=== PATIENT | male | born 1955 | race Caucasian/White ===

== ENCOUNTER 2022-12-27 10:27 | Emergency (ER) | payer MEDICARE ==
[~2022-12-27] VITALS: Ht 167.6 cm; Wt 80.0 kg
[2022-12-27 10:32] VITALS: BP 157/100; PULSE 71; RESP 16; TEMP 98.6; O2SAT 99
[2022-12-27] MEDS ORDERED: CEPH-585 PO (11:53)
[2022-12-27] MEDS ORDERED: CLIN300C54 PO (11:53)
[2022-12-27] MEDS ORDERED: PERM60CR19 TOP (11:53)
== END 2022-12-27 12:34 | disposition home or self-care (01) ==
LOC: ER 10:27
DX: S80.862A Insect bite (nonvenomous), left lower leg, initial encounter (principal); S80.861A Insect bite (nonvenomous), right lower leg, initial encounter; W57.XXXA Bitten or stung by nonvenomous insect and other nonvenomous arthropods, initial encounter; Y93.89 Activity, other specified; Y92.89 Other specified places as the place of occurrence of the external cause; Y99.8 Other external cause status
CPT/HCPCS: 99283

== ENCOUNTER 2022-12-28 12:24 | Emergency (ER) | payer MEDICARE, MEDICAID ==
[~2022-12-28] VITALS: Ht 167.6 cm; Wt 90.0 kg
[~2022-12-28 12:24] MED LIST: CEPH-585 PO; CLIN300C54 PO; PERM60CR19 TOP
[2022-12-28 12:32] VITALS: TEMP 97
[2022-12-28 14:32] VITALS: BP 126/78; PULSE 62; RESP 17; O2SAT 98
== END 2022-12-28 14:35 | disposition home or self-care (01) ==
LOC: ER 12:24
DX: L03.116 Cellulitis of left lower limb (principal); L03.115 Cellulitis of right lower limb
CPT/HCPCS: 99281

== ENCOUNTER 2023-01-10 10:50 | Emergency (ER) | payer MEDICARE, MEDICAID ==
[~2023-01-10] VITALS: Ht 167.6 cm; Wt 81.8 kg
[~2023-01-10 10:50] MED LIST changes: -CLIN300C54 PO
[2023-01-10 10:58] VITALS: BP 142/111; PULSE 71; RESP 18; TEMP 98.9; O2SAT 99
[2023-01-10 12:19] LABS: URINE AMPHETAMINE SCREEN NEGATIVE (Neg); URINE BARBITUATE SCREEN NEGATIVE (Neg); URINE BENZODIAZEPINES SCREEN NEGATIVE (Neg); URINE CANNABINOID SCREEN NEGATIVE (Neg); URINE COCAINE SCREEN NEGATIVE (Neg); URINE OPIATE SCREEN NEGATIVE (Neg); URINE PHENCYCLIDINE SCREEN NEGATIVE (Neg)
[2023-01-10 12:25] LABS: BASOPHILS % (AUTO) 0.3 % (0-1); EOSINOPHILS # (AUTO) 0.2 X10'3 (0-0.9); EOSINOPHILS % (AUTO) 4.1 % (0-6); HEMATOCRIT 41.2 % (42.0-52.0); LYMPHOCYTES # (AUTO) 1.3 X10'3 (1.1-4.8); LYMPHOCYTES % (AUTO) 23.3 % (21-51); MEAN CORPUSCULAR HEMOGLOBIN 30.1 PG (27.0-31.0); MEAN CORPUSCULAR HGB CONC 34.1 g/dL (33.0-36.5); MEAN CORPUSCULAR VOLUME 88.2 FL (78-98); MEAN PLATELET VOLUME 8.1 FL (7.4-10.4); MONOCYTES # (AUTO) 0.5 X10'3 (0-0.9); MONOCYTES % (AUTO) 9.2 % (2-12); NEUTROPHILS # (AUTO) 3.6 X10'3 (1.8-7.7); NEUTROPHILS % (AUTO) 63.1 % (42-75); PLATELET COUNT 252 X10'3 (140-440); RED BLOOD COUNT 4.67 X10'6 (4.70-6.10); RED CELL DISTRIBUTION WIDTH 15.9 % (11.5-14.5); WHITE BLOOD COUNT 5.7 X10'3 (4.5-11.0)
[2023-01-10 12:36] LABS: APTT 28 SECONDS (22-32); INR 1.2 INR; PROTHROMBIN TIME 12.3 SECONDS (9.0-12.0)
[2023-01-10 12:38] LABS: ALANINE AMINOTRANSFERASE 22 U/L (12-78); ALBUMIN 3.6 G/DL (3.4-5.0); ALBUMIN/GLOBULIN RATIO 1.1 (1.1-1.5); ALKALINE PHOSPHATASE 93 IU/L (46-116); ANION GAP 6 (8-16); ASPARTATE AMINO TRANSFERASE 15 U/L (10-37); BILIRUBIN,TOTAL 0.4 MG/DL (0.1-1.0); BLOOD UREA NITROGEN 6 MG/DL (7-18); BUN/CREATININE RATIO 7.1 (10.0-20.0); CALCIUM 8.9 MG/DL (8.5-10.1); CHLORIDE 107 MMOL/L (99-107); CREATININE 0.84 MG/DL (0.60-1.10); GLUCOSE 98 MG/DL (70-104); POTASSIUM 3.7 MMOL/L (3.5-5.1); SODIUM 141 MMOL/L (135-145); TOTAL CARBON DIOXIDE 28.3 MMOL/L (24-32); TOTAL PROTEIN 6.9 G/DL (6.4-8.2); eCRCL 76 ML/MIN; eGFR > 90 ML/MIN
[2023-01-10 12:46] LABS: ETHANOL < 10 MG/DL (<10); MAGNESIUM 2.1 MG/DL (1.5-2.4)
[2023-01-10 12:52] LABS: ACETAMINOPHEN < 2.0 UG/ML (10-30)
[2023-01-10 14:08] LABS: SALICYLATE 0.9 MG/DL (4.0-20.0)
[2023-01-10] MEDS ORDERED: PERM60CR4 TP (16:09)
[2023-01-10] MEDS ORDERED: DIPH25CA83 PO (16:09)
--- NOTE | 2023-01-10 17:06 | NUR ---
PROJECT COACH ASSESSMENT REVIEWED BY RUDDY RN, APPROVED
== END 2023-01-10 16:55 | disposition home or self-care (01) ==
LOC: ER 10:50
DX: B86 Scabies (principal); I10 Essential (primary) hypertension; E11.9 Type 2 diabetes mellitus without complications; Z88.2 Allergy status to sulfonamides; Z79.2 Long term (current) use of antibiotics; Z79.899 Other long term (current) drug therapy
CPT/HCPCS: 36415; 80053; 80305; 80320; 80329; 82140; 83605; 83735; 84443; 85025; 85610; 85730; 87040; 99283